=== PATIENT | male | born 1985 | race African-American/Black ===

== ENCOUNTER 2019-06-20 16:35 | Emergency (ER) | payer OTHER ==
[~2019-06-20] VITALS: Ht 188 cm; Wt 92.3 kg
[2019-06-20] MEDS ORDERED: CYCL10TA PO (17:55)
[2019-06-20] MEDS ORDERED: NAPR-837 PO (17:55)
[2019-06-20] MEDS ORDERED: KETOROLAC 60 MG/2 ML VIAL (J1885) IM ONE (18:00)
[2019-06-20 18:07] VITALS: BP 161/82
--- NOTE | 2019-06-21 08:49 | REP ---
Lumbar spine series: Five views: History: Low back pain, right more so than left. Findings: Lumbar vertebral body heights are preserved and alignment is normal. Mild disc space narrowing is present at L4-5. Disc spaces are otherwise preserved. There is no evidence of spondylolysis or spondylolisthesis. Sacrum and SI joints are intact. Psoas margins are symmetric. Impression: Mild disc space narrowing L4-5. Otherwise negative radiographs of the lumbar spine. Electronically Signed by Mingo Cee MD 06/21/2019 04:45 P
== END 2019-06-20 18:09 | disposition home or self-care (01) ==
LOC: M ED 16:35
DX: M62.830 Muscle spasm of back (principal); G89.29 Other chronic pain; M54.5 Low back pain
CPT/HCPCS: 72110; 96372; 99283; J1885

== ENCOUNTER 2019-08-08 14:36 | Emergency (ER) | payer OTHER ==
[~2019-08-08] VITALS: Ht 188 cm; Wt 88.5 kg
[~2019-08-08 14:36] MED LIST: CYCL10TA PO; NAPR-837 PO
[2019-08-08] MEDS ORDERED: IBUPROFEN 600 MG TAB PO ONE (16:45)
[2019-08-08] MEDS ORDERED: CYCLOBENZAPRINE 10 MG TAB PO ONE (16:45)
[2019-08-08] MEDS ORDERED: CYCL10TA PO (17:27)
[2019-08-08 17:35] VITALS: BP 157/88
--- NOTE | 2019-08-09 07:54 | REP ---
CT LUMBAR SPINE WITHOUT CONTRAST: 08/08/2019. Clinical history: Severe lumbar tenderness. Comparison: X-ray 06/20/2019. Findings: Standard CT lumbar protocol followed with coronal and sagittal reconstructions. Normal lordosis is maintained. There is very slight disc space narrowing at L4-5 compared to a level above. The vertebral body heights and the other disc space heights were all intact. Very subtle levoconvex curve centered at L3 on the coronal images. At T12-L1, L1-2 and L2-3 there is no significant disc bulge herniation and no spinal or foraminal stenosis. At L3-4, slight flattening of the ventral thecal sac without spinal or foraminal stenosis. At L4-L5, I see no significant disc bulge herniation and no spinal or foraminal stenosis. At L5-S1, there is no disc bulge or herniation and no spinal or foraminal stenosis. Facets are without hypertrophy and there was no spondylolysis or spondylolisthesis. Impression: 1. Minimal degenerative disc changes at L4-5 with slight disc space narrowing as well as subtle levoconvex curve centered at L3-4, however, no compression deformity, other disc space narrowing, spondylolysis or spondylolisthesis. 2. No spinal or foraminal stenosis at any level by CT. Electronically Signed by Christiano Murphy MD 08/09/2019 09:21 A
== END 2019-08-08 17:36 | disposition home or self-care (01) ==
LOC: M ED 14:36
DX: S39.012A Strain of muscle, fascia and tendon of lower back, initial encounter (principal); X50.0XXA Overexertion from strenuous movement or load, initial encounter; Y99.9 Unspecified external cause status; M62.830 Muscle spasm of back; M51.36 Other intervertebral disc degeneration, lumbar region; I10 Essential (primary) hypertension